=== PATIENT | female | born 1995 | race Caucasian/White ===

== ENCOUNTER 2018-04-04 11:06 | Emergency (ER) | payer MEDICAID, OTHER ==
[~2018-04-04] VITALS: Ht 157.5 cm; Wt 63.5 kg
[~2018-04-04 11:06] MED LIST: NITR100C62 PO
[2018-04-04 11:33] VITALS: BP 133/82
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
== END 2018-04-04 12:41 | disposition home or self-care (01) ==
LOC: ER 11:06
DX: O9A.212 Injury, poisoning and certain other consequences of external causes complicating pregnancy, second trimester (principal); S06.0X0A Concussion without loss of consciousness, initial encounter; Z87.891 Personal history of nicotine dependence; Z3A.14 14 weeks gestation of pregnancy; Y04.2XXA Assault by strike against or bumped into by another person, initial encounter; Y93.89 Activity, other specified; Y92.89 Other specified places as the place of occurrence of the external cause; Y99.8 Other external cause status
CPT/HCPCS: 99281

== ENCOUNTER 2020-05-17 20:46 | Emergency (ER) | payer MEDICAID ==
[~2020-05-17] VITALS: Ht 157.5 cm; Wt 81.8 kg
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
[2020-05-17] MEDS ORDERED: METOCLOPRAMIDE 10 MG TABLET. PO ONE (22:00)
[2020-05-17] MEDS ORDERED: TETRACAINE 0.5% OPHTH SOLUTION 4ML BOTTLE. OS ONE (22:15)
[2020-05-17 22:54] VITALS: BP 103/55
[2020-05-17] MEDS ORDERED: ACETAMINOPHEN 500 MG TABLET PO ONE (23:00)
[2020-05-17] MEDS ORDERED: FLUORESCEIN OPHTH TEST STRIP. OS ONE (23:00)
== END 2020-05-17 23:17 | disposition home or self-care (01) ==
LOC: ER 20:46
DX: G43.809 Other migraine, not intractable, without status migrainosus (principal); F41.9 Anxiety disorder, unspecified; F32.9 Major depressive disorder, single episode, unspecified; Z98.890 Other specified postprocedural states
CPT/HCPCS: 81025; 99285